=== PATIENT | male | born 1985 | race Caucasian/White ===

== ENCOUNTER 2020-02-27 14:44 | Emergency (ER) | payer BC ==
[2020-02-27] MEDS ORDERED: Midazolam 1 MG/ML 2 ML SDV ONE (15:02)
[2020-02-27] MEDS ORDERED: Midazolam 1 MG/ML 2 ML SDV IVPUSH ONE (15:03)
[2020-02-27] MEDS ORDERED: levETIRAcetam 500 MG in Sodium Chloride 0.9% 100 ML IV ONE (15:09)
[2020-02-27] MEDS ORDERED: LORazepam 2 MG/ML SDV ONE (15:11)
[2020-02-27] MEDS ORDERED: Sodium Chloride 0.9% 1,000 ML IV SCH (15:15)
--- NOTE | 2020-02-27 15:19 | EDM.PDOC ---
ED HPI GENERAL MEDICAL PROBLEM - General Chief Complaint: Neurological Problem Stated Complaint: CONFUSION Time Seen by Provider: 02/27/20 15:00 Source of Information: Reports: Family History Limitations: Reports: Altered Mental Status ( patient is confused and disoriented to person place and time and cannot answer questions appropriately. He speaks in gibberish.) - History of Present Illness INITIAL COMMENTS - FREE TEXT/NARRATIVE: 34-year-old male presents to the ED brought to the hospital by his . She was out of the home until noon today and when she arrived back at home he was not himself. He was confused disoriented she would tell him test to do when he would not do them or just ignore her. He complained of a headache earlier this morning and did take ibuprofen. Is unclear whether this helped or not. 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 He underwent surgical removal of the tumor by neurosurgeon- Dr Fountain on October 30. at [facility] in [place]. Subsequently he has had 6 weeks of radiation which she just finished. He is scheduled to go back on chemotherapy in a week or 10 days. Shortly after he arrived in the emergency department about 5 minutes he started to have a grand mal convulsion that lasted approximately a minute. This was followed by a second seizure about 2 minutes later which was less intense and lasted 40 seconds or so. An IV was established right antecubital and he was given 4 mg of Versed IV. He was started on oxygen by nonrebreather mask at 10 L/min. reports he is never had a seizure in the past. His sertraline was recently discontinued as well. However this was weaned off appropriately. He is also been off his steroids for 1 week. No history was available from the patient as of course he was postictal after the seizure in the ED. He will be given Keppra 500 mg IV as soon as possible and CT head will be obtained. Onset: Today, Sudden Onset Date: 02/27/20 Onset Time: 12:00 ( appreciated that he was confused and somewhat disoriented when she came home around noon today. She would tell him things that he had to do and he would either not do them or ignore her.) Duration: Hour(s):, Getting Worse Location: Reports: Other (Developed a grand mal convulsion while in the ED x2.) Quality: Reports: Other (Grand mal convulsion with a history of known brain tumor.) Severity: Moderate Improves with: Reports: Other (Seizure had more or less stopped before he was given Versed 4 mg IV.) Worsens with: Reports: None Context: Reports: Other (Known left frontal cortex oligodendroglioma diagnosed in October of this year and surgically resected at [facility] in early wound.). Denies: Activity, Exercise, Lifting, Sick Contact, Trauma Associated Symptoms: Reports: Confusion, Other (Made of a headache earlier this morning and took some ibuprofen.). 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 (Motrin approximately 10:00 this morning.) - Related Data Allergies Allergy/AdvReac Type Severity Reaction Status Date / Time No Known Drug Allergies Allergy N/A Verified 02/27/20 15:11 Home Meds: Home Meds Acetaminophen [Acetaminophen Extra Strength] 1,000 mg PO Q6HR PRN 12/02/19 [History] Ascorbic Acid [C-1000] 1,000 mg PO DAILY 12/02/19 [History] Fish Oil/[place]-3 Fatty Acids [Fish Oil 1,000 MG] 1 each PO DAILY 12/02/19 [History] Lansoprazole [Prevacid] 15 mg PO DAILY 12/02/19 [History] Sennosides [Senokot] 8.6 mg PO DAILY PRN 12/02/19 [History] Ibuprofen 400 mg PO Q4HR PRN 02/27/20 [History] Past Medical History Gastrointestinal History: Reports: Chronic Constipation, GERD Neurological History: Reports: Other (See Below) (Diagnosed with a brain tumor oligodendroglioma in October of this year. Subsequently treated with surgical debulking at [facility] on October 30 of this year .this year. Has completed 6 weeks of duration. Was on dexamethasone the entire time up until until a week ago when it was discontinued as well.) Psychiatric History: Reports: Depression (Was weaned off sertraline about a week ago.) Social & Family History - Caffeine Use Caffeine Use: Reports: Coffee - Recreational Drug Use Recreational Drug Use: No - Living Situation & Occupation Living situation: Reports: Occupation: Disabled ED ROS GENERAL - Review of Systems Review Of Systems: Unable To Obtain Reason Not Obtained: Unable to obtain from the patient since he had a grand mal convul - Physical Exam Exam: See Below Exam Limited By: Altered Mental Status (Does report the patient was confused speaking and garbled nonsensical speech when they alerted me to come to the room. Unfortunately the patient developed a grand mal convulsion on my way to the examining room.) General Appearance: Obtunded (And is obtunded and lethargic i.e. postictal at the time of my exam as he was still actively seizing when I first attended him.) Eye Exam: Bilateral Eye: Nystagmus (His seizures.), PERRL (Gaze palsy once the seizures had abated) Throat/Mouth: Normal Inspection, Normal Lips, Normal Teeth, Normal Oropharynx, Other Head Exam: Other (Surgical scar present left frontal cortex of the scalp.) Neck: Normal Inspection, Supple, Non-Tender, Full Range of Motion. No: Carotid Bruit, Lymphadenopathy (L), Lymphadenopathy (R) Respiratory/Chest: No Respiratory Distress, Lungs Clear, Normal Breath Sounds, No Accessory Muscle Use, Chest Non-Tender, Other (Stertorous breathing seizure abated.) Cardiovascular: Normal Peripheral Pulses, Regular Rate, Rhythm, No Edema, No Gallop, No Murmur, No Rub GI/Abdominal: Normal Bowel Sounds, Soft, Non-Tender, No Organomegaly, No Mass, Pelvis Stable Neuro Exam (Abbreviated): Other (.) DTR: 0: Bicep (R), Bicep (L), Patella (R), Patella (L), Achilles (R), Achilles (L) Back Exam: Normal Inspection Extremities: Normal Inspection, Normal Range of Motion, Non-Tender, No Pedal Edema EKG INTERPRETATION EKG Date: 02/27/20 Time: 15:23 Rhythm: Other (Sinus tachycardia) Rate (Beats/Min): 128 [place]: Normal P-Wave: Enlarged (Consider left atrial hypertrophy) QRS: Other (RSR prime wave V1 in V2 consider normal variant) QT: Prolonged (TC is minimally prolonged) EKG Interpretation Comments: Borderline ECG Course - Vital Signs Last Recorded V/S: Last Vital Signs Temp 35.9 C L 02/27/20 14:55 Pulse 126 H 02/27/20 15:15 Resp 24 H 02/27/20 15:15 BP 148/80 H 02/27/20 15:15 Pulse Ox 100 02/27/20 15:15 - Orders/Labs/Meds Labs: Laboratory Tests 02/27/20 02/27/20 02/27/20 Range/Units 15:15 15:20 15:20 WBC 9.02 (4.23-9.07) K/mm3 RBC 5.22 (4.63-6.08) M/mm3 Hgb 15.6 (13.7-17.5) gm/dl Hct 45.5 (40.1-51.0) % MCV 87.2 (79.0-92.2) fl MCH 29.9 (25.7-32.2) pg MCHC 34.3 (32.2-35.5) g/dl RDW Std Deviation 42.3 (35.1-43.9) fL Plt Count 247 (163-337) K/mm3 MPV 8.8 L (9.4-12.3) fl Neut % (Auto) 42.6 (34.0-67.9) % Lymph % (Auto) 41.4 (21.8-53.1) % [place] % (Auto) 12.6 H (5.3-12.2) % Eos % (Auto) 1.8 (0.8-7.0) Baso % (Auto) 0.2 (0.1-1.2) % Neut # (Auto) 3.84 (1.78-5.38) K/mm3 Lymph # (Auto) 3.73 H (1.32-3.57) K/mm3 [place] # (Auto) 1.14 H (0.30-0.82) K/mm3 Eos # (Auto) 0.16 (0.04-0.54) K/mm3 Baso # (Auto) 0.02 (0.01-0.08) K/mm3 Manual Slide Review Abnormal smear PT 10.5 (9.7-11.7) SECONDS INR 0.98 APTT 25 (22-31) SECONDS Sodium (136-145) mEq/L Potassium (3.5-5.1) mEq/L Chloride (98-107) mEq/L Carbon Dioxide (21-32) mEq/L Anion Gap (5-15) BUN (7-18) mg/dL Creatinine (0.7-1.3) mg/dL Est Cr Clr Drug Dosing mL/min Estimated GFR (MDRD) (>60) mL/min BUN/Creatinine Ratio (14-18) Glucose (74-106) mg/dL POC Glucose 118 H (70-105) mg/dL Calcium (8.5-10.1) mg/dL Magnesium (1.8-2.4) mg/dl Total Bilirubin (0.2-1.0) mg/dL AST (15-37) U/L ALT (16-63) U/L Alkaline Phosphatase (46-116) U/L Total Protein (6.4-8.2) g/dl Albumin (3.4-5.0) g/dl Globulin gm/dL Albumin/Globulin Ratio (1-2) COVID-19 (OSKAR) (NEGATIVE) 02/27/20 02/27/20 Range/Units 15:20 16:54 WBC (4.23-9.07) K/mm3 RBC (4.63-6.08) M/mm3 Hgb (13.7-17.5) gm/dl Hct (40.1-51.0) % MCV (79.0-92.2) fl MCH (25.7-32.2) pg MCHC (32.2-35.5) g/dl RDW Std Deviation (35.1-43.9) fL Plt Count (163-337) K/mm3 MPV (9.4-12.3) fl Neut % (Auto) (34.0-67.9) % Lymph % (Auto) (21.8-53.1) % [place] % (Auto) (5.3-12.2) % Eos % (Auto) (0.8-7.0) Baso % (Auto) (0.1-1.2) % Neut # (Auto) (1.78-5.38) K/mm3 Lymph # (Auto) (1.32-3.57) K/mm3 [place] # (Auto) (0.30-0.82) K/mm3 Eos # (Auto) (0.04-0.54) K/mm3 Baso # (Auto) (0.01-0.08) K/mm3 Manual Slide Review PT (9.7-11.7) SECONDS INR APTT (22-31) SECONDS Sodium 139 (136-145) mEq/L Potassium 3.7 (3.5-5.1) mEq/L Chloride 102 (98-107) mEq/L Carbon Dioxide 18 L D (21-32) mEq/L Anion Gap 22.7 H (5-15) BUN 10 (7-18) mg/dL Creatinine 1.2 (0.7-1.3) mg/dL Est Cr Clr Drug Dosing 87.87 mL/min Estimated GFR (MDRD) > 60 (>60) mL/min BUN/Creatinine Ratio 8.3 L (14-18) Glucose 133 H (74-106) mg/dL POC Glucose (70-105) mg/dL Calcium 8.7 (8.5-10.1) mg/dL Magnesium 1.8 (1.8-2.4) mg/dl Total Bilirubin 0.5 (0.2-1.0) mg/dL AST 38 H (15-37) U/L ALT 96 H (16-63) U/L Alkaline Phosphatase 72 (46-116) U/L Total Protein 7.1 (6.4-8.2) g/dl Albumin 3.7 (3.4-5.0) g/dl Globulin 3.4 gm/dL Albumin/Globulin Ratio 1.1 (1-2) COVID-19 (OSKAR) Negative (NEGATIVE) Meds: Medications Discontinued Medications Generic Name Dose Route Start Last Admin Trade Name Freq PRN Reason Stop Dose Admin Dexamethasone 4 mg 02/27/20 16:14 02/27/20 16:37 Dexamethasone IVPUSH 02/27/20 16:15 4 mg ONETIME ONE Administration Sodium Chloride 1,000 mls @ 100 mls/hr 02/27/20 15:15 02/27/20 15:18 Normal Saline IV 100 mls/hr ASDIRECTED [place] Administration Levetiracetam 500 mg/ Sodium 105 mls @ 400 mls/hr 02/27/20 15:09 02/27/20 15:18 Chloride IV 02/27/20 15:23 400 mls/hr ONETIME ONE Administration Lorazepam Confirm 02/27/20 15:11 02/27/20 15:18 Ativan Administered 02/27/20 15:12 Not Given Dose 2 mg .ROUTE .STK-MED ONE Lorazepam 2 mg 02/27/20 17:42 02/27/20 17:43 Ativan IVPUSH 02/27/20 17:43 2 mg ONETIME ONE Administration Midazolam HCl Confirm 02/27/20 15:02 02/27/20 15:17 Versed 1 Mg/Ml Administered 02/27/20 15:03 Not Given Dose 2 mg .ROUTE .STK-MED ONE Midazolam HCl 4 mg 02/27/20 15:03 02/27/20 15:03 Versed 1 Mg/Ml IVPUSH 02/27/20 15:04 4 mg ONETIME ONE Administration Ondansetron HCl 4 mg 02/27/20 16:31 02/27/20 16:35 Zofran IVPUSH 02/27/20 16:32 4 mg ONETIME ONE Administration Ondansetron HCl Confirm 02/27/20 16:33 Zofran Administered 02/27/20 16:34 Dose 4 mg .ROUTE .STK-MED ONE - Radiology Interpretation Free Text/Narrative:: 34-year-old male with a known diagnosis of brain tumor left frontal cortex in October of this year. Apparently was in a oligodendroglioma that was resected by neurosurgery department at [facility] in [place] 8 October or early November of this year. This was followed by 6 weeks of radiation which the patient completed a little over a week ago. He was weaned off his steroids a week ago as well as his sertraline. He has no history of seizures although with suspect that he may have presented with a seizure since he had a drop attack and lost control of his bladder. His was not with him at that time. CT of the head revealed a brain tumor. appreciated that he was speaking nonsensical and seemed to be confused at noon when she attended him. She brought him to the hospital under good deal of resistance today. Shortly after arrival in the emergency department such as 5 minutes he experienced a grand mal convulsion that I witnessed while in his bed. He had a second less intense grand mal seizure approximately 2 minutes later. He was treated with 4 mg of Versed IV which stopped the seizures. Will be given Keppra 500 mg IV low dose. Routine labs to be collected as well as CT head to be done. - Re-Assessments/Exams Free Text/Narrative Re-Assessment/Exam: 02/27/20 15:57 Labs reveal a normal white count at 9.02. Neutrophil count is 42.6 on the auto differential. 41.4% on the lymphocyte side. Hemoglobin is 15.6 with hematocrit of 45.5. MCV is 87.2. Platelet count 247,000. The slide reveals a few reactive lymphocytes appreciated. PT was 10.5 with an INR of 0.98. PTT is 25. Sodium 139 with a potassium of 3.7 chloride 102 witha lactic acidosis produced by seizure. BUN is 10 with a creatinine of 1.2 with GFR is greater than 60. Glucose 133 .bedside glucose was 118. Calcium 8.7 with a magnesium of 1.8. Bilirubin is 0.5 with an AST slightly elevated at 38 and an ALT slightly elevated at 96. Alk phos stays normal at 72. Total protein 7.1 with an albumin fraction of 3.7 COVID-19 test was negative. Bicarb low at 18 due to hyperventilation response. Anion gap elevated at 22.7 this corresponds to a prolonged seizure with lactic acidosis. CT of the brain revealed a for whole left temporal skull. There is a collection of either calcification or pinpoint hemorrhage within the right frontal cortex in the distribution of where his tumor was resected. It is impossible to differentiate between blood and/or calcium in a oligodendroglioma. 02/27/20 16:10: Did speak through the 1 call nurse at [facility] in [place] with Dr. Abebe neurosurgeon precision devices inspector/tester. He agrees that it is impossible to tell whether there is a fresh bleed in an oligodendroglioma since a lot of them are calcified as well. Patient therefore requires an MRI to differentiate between blood and calcification. At a minimum he is a new onset seizure disorder not necessarily unexpected after having a malignant tumor resected from his brain. Patient will need to be started on antiseizure medication at a bare minimum. He will be sent to [facility] around ambulance as soon as it can be arranged. Patient will be given dexamethasone 4 mg IV at the suggestion of Dr. Abebe to further reduce any swelling around the tumor site. 02/27/20 17:38 patient was discharged from the ED per ground ambulance at this time. Vitals have remained stable. His confusional state is now markedly improved according to his and he is acting more close to his normal. Departure - Departure Time of Disposition: 17:30 Disposition: DC/Tfer to Acute Hospital 02 Condition: Fair Clinical Impression: New onset seizure, History of oligodendroglioma of brain - Discharge Information *PRESCRIPTION DRUG MONITORING PROGRAM REVIEWED*: Not Applicable *COPY OF PRESCRIPTION DRUG MONITORING REPORT IN PATIENT GABBY: Not Applicable Referrals: Jeremi Yanes MD [Primary Care Provider] - Forms: ED Department Discharge Additional Instructions: And transferred to [facility] in [place] for neurosurgical evaluation due to new onset seizure development and confusional state today. Patient had witnessed grand mal convulsions x2 by me in the ED. Sepsis Event Note (ED) - Evaluation Sepsis Screening Result: No Definite Risk - Focused Exam Vital Signs: Vital Signs Temp Pulse Resp BP Pulse Ox 02/27/20 15:15 126 H 24 H 148/80 H 100 02/27/20 14:55 35.9 C L 91 16 143/101 H 96
--- NOTE | 2020-02-27 16:02 | CT ---
Head CT Technique: Multiple axial sections through the brain were obtained. Intravenous contrast was not utilized. Comparison: Low density change with some overlying calcification is seen within the left frontal region. Findings are similar to previous MRI exam of 12/03/19. Previous overlying craniotomy is noted. Findings presumably represent stable tumor. No other abnormal parenchymal densities are seen. No evidence of intracranial hemorrhage. No midline shift or mass-effect is appreciated other than mild mass-effect caused by the left frontal tumor. Impression: 1. Left frontal tumor which is stable in appearance from previous MRI. 2. No acute intracranial abnormality is identified. Diagnostic code #9 This report was dictated in MDT
--- NOTE | 2020-02-27 16:03 | CR ---
Chest: Portable view of the chest was obtained. Comparison: No prior chest imaging is available. Heart size and mediastinum are normal. Lungs are clear with no acute parenchymal change. Bony structures are grossly intact. Impression: 1. Nothing acute is seen on frontal chest x-ray. Diagnostic code #1 This report was dictated in MDT
[2020-02-27] MEDS ORDERED: Dexamethasone 4 MG/ML SDV IVPUSH ONE (16:14)
[2020-02-27] MEDS ORDERED: Ondansetron 4 MG/2 ML SDV IVPUSH ONE (16:31)
[2020-02-27] MEDS ORDERED: Ondansetron 4 MG/2 ML SDV ONE (16:33)
[2020-02-27] MEDS ORDERED: LORazepam 2 MG/ML SDV IVPUSH ONE (17:42)
== END 2020-02-27 17:25 ==
LOC: JD.ED 14:44
DX: R56.9 Unspecified convulsions (principal); C71.9 Malignant neoplasm of brain, unspecified; K21.9 Gastro-esophageal reflux disease without esophagitis; F32.9 Major depressive disorder, single episode, unspecified; Z20.828 Contact with and (suspected) exposure to other viral communicable diseases; Z79.899 Other long term (current) drug therapy
CPT/HCPCS: 36415; 70450; 71045; 80053; 82962; 83735; 85025; 85610; 85730; 87635; 93005; 96361; 96365; 96375; 99285; J1100; J1953; J2060; J2250; J2405; J7030; J7050; 93010; U0002

== ENCOUNTER 2024-01-01 06:37 | Emergency (ER) | payer BC ==
[2024-01-01 08:07] LABS: BASOPHILS ABSOLUTE AUTO 0.1 K/mm3 (0.0-0.2); BASOPHILS PERCENT AUTO 0.7 % (0.0-1.0); EOSINOPHILS ABSOLUTE AUTO 0.1 K/mm3 (0.0-0.4); EOSINOPHILS PERCENT AUTO 1.3 % (0.0-6.0); HEMATOCRIT 48.2 % (42.0-52.0); HEMOGLOBIN 16.8 gm/dl (14.0-18.0); IMMATURE GRAN ABSOLUTE AUTO 0.03 K/mm3 (0.00-0.05); IMMATURE GRAN PERCENT AUTO 0.4 % (0.0-0.4); LYMPHOCYTES ABSOLUTE AUTO 1.8 K/mm3 (1.0-4.8); LYMPHOCYTES PERCENT AUTO 23.1 % (24.0-44.0); MEAN CORPUSCULAR HEMOGLOBIN 29.2 pg (28.0-32.0); MEAN CORPUSCULAR HGB CONC 34.9 g/dl (32.0-36.0); MEAN CORPUSCULAR VOLUME 83.8 fl (83.0-99.0); MEAN PLATELET VOLUME 9.2 fl (9.4-12.4); MONOCYTES ABSOLUTE AUTO 0.6 K/mm3 (0.0-0.8); MONOCYTES PERCENT AUTO 7.2 % (0.0-8.0); NEUTROPHILS ABSOLUTE AUTO 5.1 K/mm3 (1.8-7.7); NEUTROPHILS PERCENT AUTO 67.3 % (41.0-71.0); PLATELET COUNT,PLT 202 K/mm3 (150-400); RED BLOOD CELL COUNT 5.75 M/mm3 (4.52-5.90); WHITE BLOOD CELL COUNT,WBC 7.63 K/mm3 (3.9-11.3)
[2024-01-01 08:15] LABS: A/G RATIO 1.3 (1-2); ANION GAP 12.2 (5-15); BILIRUBIN TOTAL 0.4 mg/dL (0.2-1.0); BUN/CREATININE RATIO 22.5 (14-18); CALCIUM 9.1 mg/dL (8.5-10.1); CREATININE 0.8 mg/dL (0.7-1.3); EST CRCL DRUG DOSING (CG) 126.74 mL/min; POTASSIUM,K 4.2 mEq/L (3.5-5.1)
[2024-01-01] MEDS: Iopamidol 612 MG/ML 30 ML SDV IV ONE (08:32)
[2024-01-01] MEDS: Sodium Chloride 0.9% 10 ML Syringe FLUSH PRN (08:32)
[2024-01-01 08:39] LABS: APPEARANCE,URINE CLEAR (Clear); BILIRUBIN,URINE NEGATIVE (Negative); COLOR,URINE YELLOW (Yellow); GLUCOSE,URINE NEGATIVE (Negative); KETONES,URINE NEGATIVE (Negative); LEUKOCYTE ESTERASE,URINE NEGATIVE (Negative); NITRITE,URINE NEGATIVE (Negative); OCCULT BLOOD,URINE NEGATIVE (Negative); PROTEIN,URINE NEGATIVE (Negative); UROBILINOGEN,URINE 0.2 (0.2-1.0)
[2024-01-01] MEDS ORDERED: Ketorolac 15 MG/ML SDV ONE (09:03)
[2024-01-01] MEDS ORDERED: Sodium Chloride 0.9% 1,000 ML ONE (09:03)
[2024-01-01] MEDS: Sodium Chloride 0.9% 1,000 ML IV ONE (09:25)
[2024-01-01] MEDS: Ketorolac 15 MG/ML SDV IVPUSH ONE (09:25)
[2024-01-01] MEDS: Sodium Chloride 0.9% 10 ML Syringe FLUSH SCH (11:09)
== END 2024-01-01 12:55 | disposition home or self-care (01) ==
LOC: JD.ED 06:37 → JD.ICU 07:45 → UNDOADMIN 07:45 → JD.ED 12:55
DX: R10.84 Generalized abdominal pain (principal); K21.9 Gastro-esophageal reflux disease without esophagitis; Z88.8 Allergy status to other drugs, medicaments and biological substances; Z79.899 Other long term (current) drug therapy; Z86.16 Personal history of COVID-19
CPT/HCPCS: 36415; 74177; 74177-26; 80053; 81003; 83690; 85025; 96374; 99284-25; J1885; J3490; J7030; Q9967

== ENCOUNTER 2024-05-20 10:12 | Emergency (ER) | payer BC ==
[2024-05-20] MEDS: Lidocaine 1% 20 ML MDV INJECT ONE (13:22)
== END 2024-05-20 14:30 | disposition home or self-care (01) ==
LOC: JD.ED 10:12
DX: L76.82 Other postprocedural complications of skin and subcutaneous tissue (principal); K21.9 Gastro-esophageal reflux disease without esophagitis; E66.9 Obesity, unspecified; Z88.8 Allergy status to other drugs, medicaments and biological substances; Z86.16 Personal history of COVID-19; Z68.33 Body mass index [BMI] 33.0-33.9, adult; Z79.899 Other long term (current) drug therapy
CPT/HCPCS: 12001; 99283; J3490

== ENCOUNTER 2024-06-02 03:20 | Emergency (ER) | payer BC ==
[2024-06-02] MEDS: Sodium Chloride 0.9% 10 ML Syringe FLUSH ONE (03:54)
[2024-06-02] MEDS: Ondansetron 4 MG/2 ML SDV IVPUSH ONE (03:54)
[2024-06-02] MEDS: HYDROmorphone 0.5 MG/0.5 ML Syringe IVPUSH ONE ×3 (03:54→06:52)
[2024-06-02] MEDS: Iopamidol 612 MG/ML 100 ML Bottle IVPUSH ONE (03:55)
[2024-06-02] MEDS: Sodium Chloride 0.9% 10 ML Syringe FLUSH PRN (03:55)
[2024-06-02 04:01] LABS: BASOPHILS PERCENT AUTO 0.2 % (0.0-1.0); EOSINOPHILS ABSOLUTE AUTO 0.1 K/mm3 (0.0-0.4); EOSINOPHILS PERCENT AUTO 1.7 % (0.0-6.0); HEMATOCRIT 47.4 % (42.0-52.0); HEMOGLOBIN 15.7 gm/dl (14.0-18.0); IMMATURE GRAN ABSOLUTE AUTO 0.02 K/mm3 (0.00-0.05); IMMATURE GRAN PERCENT AUTO 0.2 % (0.0-0.4); LYMPHOCYTES ABSOLUTE AUTO 1.4 K/mm3 (1.0-4.8); LYMPHOCYTES PERCENT AUTO 17.4 % (24.0-44.0); MEAN CORPUSCULAR HEMOGLOBIN 29.3 pg (28.0-32.0); MEAN CORPUSCULAR HGB CONC 33.1 g/dl (32.0-36.0); MEAN CORPUSCULAR VOLUME 88.4 fl (83.0-99.0); MEAN PLATELET VOLUME 8.6 fl (9.4-12.4); MONOCYTES ABSOLUTE AUTO 0.5 K/mm3 (0.0-0.8); MONOCYTES PERCENT AUTO 5.8 % (0.0-8.0); NEUTROPHILS ABSOLUTE AUTO 6.1 K/mm3 (1.8-7.7); NEUTROPHILS PERCENT AUTO 74.7 % (41.0-71.0); PLATELET COUNT,PLT 197 K/mm3 (150-400); RED BLOOD CELL COUNT 5.36 M/mm3 (4.52-5.90); WHITE BLOOD CELL COUNT,WBC 8.22 K/mm3 (3.9-11.3)
[2024-06-02] MEDS: Ketorolac 30 MG/ML SDV IVPUSH ONE (04:19)
[2024-06-02] MEDS: Sodium Chloride 0.9% 1,000 ML IV SCH (04:19)
[2024-06-02] MEDS ORDERED: Sodium Chloride 0.9% 100 ML IV SCH (04:30)
[2024-06-02 04:31] LABS: A/G RATIO 1.2 (1-2); ALBUMIN 3.9 g/dl (3.4-5.0); ANION GAP 14.5 (5-15); BILIRUBIN TOTAL 0.4 mg/dL (0.2-1.0); BUN/CREATININE RATIO 11.4 (14-18); CALCIUM 8.7 mg/dL (8.5-10.1); CREATININE 1.4 mg/dL (0.7-1.3); EST CRCL DRUG DOSING (CG) 76.98 mL/min; POTASSIUM,K 3.5 mEq/L (3.5-5.1); PROTEIN TOTAL,TP 7.2 g/dl (6.4-8.2)
[2024-06-02] MEDS: Iopamidol 755 Mg/ML 100 ML Bottle IVPUSH ONE (04:47)
[2024-06-02] MEDS: Apixaban 5 MG Tab PO ONE (06:14)
[2024-06-02 06:21] LABS: APPEARANCE,URINE SLT CLOUDY (Clear); BILIRUBIN,URINE NEGATIVE (Negative); COLOR,URINE YELLOW (Yellow); GLUCOSE,URINE NEGATIVE (Negative); KETONES,URINE NEGATIVE (Negative); LEUKOCYTE ESTERASE,URINE NEGATIVE (Negative); NITRITE,URINE NEGATIVE (Negative); OCCULT BLOOD,URINE 3+ (Negative); PROTEIN,URINE TRACE (Negative); UROBILINOGEN,URINE 0.2 (0.2-1.0)
[2024-06-02 06:47] LABS: RBC,URINE 20-30 /hpf (0-5); SQUAMOUS EPITHELIAL CELLS,UR NOT SEEN /hpf (0-5); WBC,URINE 0-5 /hpf (0-5)
[2024-06-02 06:48] LABS: BACTERIA,URINE FEW /hpf (FEW); MUCUS,URINE NOT SEEN /hpf (FEW)
== END 2024-06-02 07:07 | disposition home or self-care (01) ==
LOC: JD.ED 03:20
DX: N13.2 Hydronephrosis with renal and ureteral calculous obstruction (principal); I26.99 Other pulmonary embolism without acute cor pulmonale; K21.9 Gastro-esophageal reflux disease without esophagitis; E66.9 Obesity, unspecified; Z86.16 Personal history of COVID-19; Z90.89 Acquired absence of other organs; Z88.8 Allergy status to other drugs, medicaments and biological substances; Z79.01 Long term (current) use of anticoagulants; Z79.899 Other long term (current) drug therapy; Z68.29 Body mass index [BMI] 29.0-29.9, adult
CPT/HCPCS: 36415; 71275; 74177; 80053; 81001; 83605; 83690; 85025; 96361; 96374; 96375; 96376; 99284; A9270; J1171; J1885; J2405; J7030; Q9967

== ENCOUNTER 2024-06-22 20:10 | Emergency (ER) | payer BC ==
[2024-06-22] MEDS ORDERED: Sodium Chloride 0.9% 10 ML Syringe FLUSH PRN (20:27)
[2024-06-22 20:48] LABS: BASOPHILS PERCENT AUTO 0.5 % (0.0-1.0); EOSINOPHILS ABSOLUTE AUTO 0.1 K/mm3 (0.0-0.4); EOSINOPHILS PERCENT AUTO 1.5 % (0.0-6.0); HEMATOCRIT 45.8 % (42.0-52.0); HEMOGLOBIN 15.5 gm/dl (14.0-18.0); IMMATURE GRAN ABSOLUTE AUTO 0.03 K/mm3 (0.00-0.05); IMMATURE GRAN PERCENT AUTO 0.4 % (0.0-0.4); LYMPHOCYTES ABSOLUTE AUTO 2.9 K/mm3 (1.0-4.8); LYMPHOCYTES PERCENT AUTO 35.3 % (24.0-44.0); MEAN CORPUSCULAR HEMOGLOBIN 28.8 pg (28.0-32.0); MEAN CORPUSCULAR HGB CONC 33.8 g/dl (32.0-36.0); MEAN PLATELET VOLUME 9.1 fl (9.4-12.4); MONOCYTES ABSOLUTE AUTO 0.7 K/mm3 (0.0-0.8); MONOCYTES PERCENT AUTO 8.7 % (0.0-8.0); NEUTROPHILS ABSOLUTE AUTO 4.4 K/mm3 (1.8-7.7); NEUTROPHILS PERCENT AUTO 53.6 % (41.0-71.0); PLATELET COUNT,PLT 219 K/mm3 (150-400); RED BLOOD CELL COUNT 5.39 M/mm3 (4.52-5.90); WHITE BLOOD CELL COUNT,WBC 8.19 K/mm3 (3.9-11.3)
[2024-06-22 21:16] LABS: INR 1.03; PROTHROMBIN TIME 10.9 SECONDS (9.7-12.0)
[2024-06-22 21:17] LABS: PTT,PARTIAL THROMBOPLSTIN TIME 29.3 SECONDS (21.7-31.4)
[2024-06-22 21:39] LABS: A/G RATIO 1.3 (1-2); ALANINE AMINOTRANSFERASE,ALT 49 U/L (16-63); ALBUMIN 3.9 g/dl (3.4-5.0); ALKALINE PHOSPHATASE 77 U/L (46-116); ANION GAP 13.8 (5-15); ASPARTATE AMNIOTRANSFERASE,AST 17 U/L (15-37); BILIRUBIN TOTAL 0.4 mg/dL (0.2-1.0); BLOOD UREA NITROGEN,BUN 12 mg/dL (7-18); CALCIUM 8.7 mg/dL (8.5-10.1); CARBON DIOXIDE,CO2 29 mEq/L (21-32); CHLORIDE,CL 105 mEq/L (98-107); ESTIMATED GFR 98 mL/min (>60); GLUCOSE RANDOM 122 mg/dL (70-99); POTASSIUM,K 3.8 mEq/L (3.5-5.1); SODIUM,NA 144 mEq/L (136-145)
[2024-06-22 21:46] LABS: TROPONIN I HIGH SENSITIVITY < 4 pg/mL (<=76)
[2024-06-22] MEDS: Dexamethasone 4 MG/ML SDV ONE (22:58)
[2024-06-22] MEDS: Dexamethasone 4 MG/ML SDV IVPUSH ONE (22:58)
== END 2024-06-23 01:56 | disposition home or self-care (01) ==
LOC: JD.ED 20:10
DX: R47.01 Aphasia (principal); K21.9 Gastro-esophageal reflux disease without esophagitis; E66.9 Obesity, unspecified; Z68.33 Body mass index [BMI] 33.0-33.9, adult; Z86.16 Personal history of COVID-19; Z90.89 Acquired absence of other organs; Z88.8 Allergy status to other drugs, medicaments and biological substances; Z79.01 Long term (current) use of anticoagulants; Z79.899 Other long term (current) drug therapy
CPT/HCPCS: 36415; 70450; 70496; 70498; 80053; 82947; 84484; 85025; 85610; 85730; 93005; 96374; 99285; J1100

== ENCOUNTER 2024-11-24 06:35 | Emergency (ER) | payer BC ==
[2024-11-24 07:27] LABS: BASOPHILS PERCENT AUTO 0.3 % (0.0-1.0); EOSINOPHILS ABSOLUTE AUTO 0.1 K/mm3 (0.0-0.4); EOSINOPHILS PERCENT AUTO 0.7 % (0.0-6.0); HEMATOCRIT 47.9 % (42.0-52.0); HEMOGLOBIN 16.5 gm/dl (14.0-18.0); IMMATURE GRAN ABSOLUTE AUTO 0.02 K/mm3 (0.00-0.05); IMMATURE GRAN PERCENT AUTO 0.2 % (0.0-0.4); LYMPHOCYTES ABSOLUTE AUTO 1.5 K/mm3 (1.0-4.8); LYMPHOCYTES PERCENT AUTO 16.5 % (24.0-44.0); MEAN CORPUSCULAR HEMOGLOBIN 28.3 pg (28.0-32.0); MEAN CORPUSCULAR HGB CONC 34.4 g/dl (32.0-36.0); MEAN CORPUSCULAR VOLUME 82.2 fl (83.0-99.0); MEAN PLATELET VOLUME 9.4 fl (9.4-12.4); MONOCYTES ABSOLUTE AUTO 0.5 K/mm3 (0.0-0.8); MONOCYTES PERCENT AUTO 5.8 % (0.0-8.0); NEUTROPHILS PERCENT AUTO 76.5 % (41.0-71.0); PLATELET COUNT,PLT 185 K/mm3 (150-400); RED BLOOD CELL COUNT 5.83 M/mm3 (4.52-5.90); WHITE BLOOD CELL COUNT,WBC 9.09 K/mm3 (3.9-11.3)
[2024-11-24 07:30] LABS: INR 1.01; PROTHROMBIN TIME 10.7 SECONDS (9.7-12.0)
[2024-11-24 07:36] LABS: A/G RATIO 1.3 (1-2); ANION GAP 10.7 (5-15); BILIRUBIN TOTAL 0.3 mg/dL (0.2-1.0); EST CRCL DRUG DOSING (CG) 100.38 mL/min; MAGNESIUM 1.7 mg/dL (1.8-2.4); POTASSIUM,K 3.7 mEq/L (3.5-5.1); PROTEIN TOTAL,TP 7.1 g/dl (6.4-8.2)
[2024-11-24] MEDS: Sodium Chloride 0.9% 1,000 ML IV SCH (07:45)
[2024-11-24] MEDS: Famotidine 20 MG/2 ML SDV IVPUSH ONE (07:45)
[2024-11-24] MEDS: Ondansetron 4 MG/2 ML SDV IVPUSH ONE (07:45)
[2024-11-24] MEDS: Pantoprazole 40 MG Vial IVPUSH ONE (07:45)
[2024-11-24 08:13] LABS: BARBITURATE SCREEN,URINE NEGATIVE (CUTOFF=200); BENZODIAZEPINES SCREEN,URINE NEGATIVE (CUTOFF=150); BUPRENORPHINE SCREEN,URINE NEGATIVE (CUTOFF=10); METHADONE SCREEN, URINE NEGATIVE (CUT0FF=200); METHAMPHETAMINES SCREEN, URINE NEGATIVE (CUTOFF=500); OXYCODONE SCREEN,URINE NEGATIVE (CUT0FF=100); THC SCREEN,URINE 20 NG/ML NEGATIVE (CUTOFF=50)
[2024-11-24 08:15] LABS: AMPHETAMINES SCREEN, URINE NEGATIVE (CUTOFF=500)
[2024-11-24] MEDS: Magnesium Sulfate 2 GM/50 mL 2 GM/50 ML BAG IV ONE (09:29)
== END 2024-11-24 10:38 | disposition home or self-care (01) ==
LOC: JD.ED 06:35
DX: K80.70 Calculus of gallbladder and bile duct without cholecystitis without obstruction (principal); K29.70 Gastritis, unspecified, without bleeding; E83.42 Hypomagnesemia; K21.9 Gastro-esophageal reflux disease without esophagitis; E66.9 Obesity, unspecified; Z68.34 Body mass index [BMI] 34.0-34.9, adult; Z86.16 Personal history of COVID-19; Z79.899 Other long term (current) drug therapy; Z88.8 Allergy status to other drugs, medicaments and biological substances
CPT/HCPCS: 36415; 76705; 80053; 80306; 82550; 83690; 83735; 85025; 85610; 96365; 96375; 99284; J2405; J2470; J3475; J7030; 99283